=== PATIENT | female | born 1960 | race Caucasian/White ===

== ENCOUNTER → 2020-12-15 01:59 | Outpatient (CLI) | payer BC, SELFPAY ==
[2020-12-15 17:27] LABS: SARS-CoV-2 RNA PCR Negative
== END ==
PROVIDERS: PCP Nurse Practitioner Family
DX: D24.1 Benign neoplasm of right breast (principal); Z20.822 Contact with and (suspected) exposure to COVID-19
CPT/HCPCS: C9803; U0003; U0005

== ENCOUNTER 2022-01-29 10:12 | Outpatient (CLI) | payer BC, SELFPAY ==
--- NOTE | ~2022-01-29 | DEXA_ITS ---
Bone Density Report Name: YUKI MCMAOHN Age: 62 Sex: Female Ethnicity: White Date of : 1960 Indication: postmenopausal; screening for osteoporosis; parental hip fracture; asthma or emphysema; Referring Provider: OSMIN VANN Study: Bone densitometry was performed. Exam Date: January 29, 2022 Accession number: [id number] Bone Density: Region BMD T-score Z-score Classification AP Spine(L1-L4) 1.144 0.9 2.5 Normal Femoral Neck (Left) 0.709 -1.3 0.2 Osteopenia Total Hip (Left) 0.826 -1.0 0.2 Normal Femoral Neck (Right) 0.695 -1.4 0.0 Osteopenia Total Hip (Right) 0.806 -1.1 0.0 Osteopenia Total Hip Mean 0.816 -1.1 0.1 Osteopenia World Health Organization criteria for BMD impression classify patients as: Normal (T-score at or above -1.0), Osteopenia (T-score between -1.0 and -2.5), or Osteoporosis (T-score at or below -2.5). 10-year Fracture Risk(1): Major Osteoporotic Fracture 16% Hip Fracture 0.8% Reported Risk Factors: [place] (), Neck BMD=0.695, BMI=28.8, parental fracture (1) FRAX(R) Version 3.08. Fracture probability calculated for an untreated patient. Fracture probability may be lower if the patient has received treatment. Clinical Information Provided by Patient: Parent has had a hip fracture Has the following medical conditions: Asthma or Emphysema Patient maximum height was 64.5 Menopause Age: 51 No regular weight bearing exercise Does not regularly consume dairy products Onset of menses at age 12 Number of children 0 Impression: The patient has low bone mass, based on the Right Femoral Neck T-score. The patient has an estimated ten-year risk of hip fracture of 0.8% and an estimated ten-year risk of major fracture of 16%, based on the WHO FRAX algorithm. The patient has risk factors, including: parental hip fracture. Discussion: BONE DENSITY IS LOW AT ONE OR MORE SKELETAL SITES. This patient's lowest T-score is low at one or more skeletal sites. It meets the World Health Organization's (WHO) criteria for ?low bone mass? (T-score between -1.0 and -2.5). The patient's 10-year risk of fracture as calculated by FRAX is less than the threshold where pharmacological therapy is recommended by the National Osteoporosis Foundation (NOF). However, all treatment decisions require clinical judgment and consideration of individual patient factors, including patient preferences, comorbidities, previous drug use, risk factors not captured in the FRAX model (e.g., frailty, falls, vitamin D deficiency, increased bone turnover, interval significant decline in bone density) and possible under or overestimation of fracture risk by FRAX. The patient should follow a healthful lifestyle (good nutrition with adequate calcium and vitamin D, and appropriate weight-bearing exercise
== END 2022-01-29 10:13 | disposition home or self-care (01) ==
PROVIDERS: PCP Nurse Practitioner Family
DX: Z13.820 Encounter for screening for osteoporosis (principal); M85.852 Other specified disorders of bone density and structure, left thigh; M85.851 Other specified disorders of bone density and structure, right thigh
CPT/HCPCS: 77080